=== PATIENT | female | born 1930 | race Caucasian/White ===

== ENCOUNTER 2017-10-30 19:27 | Emergency (ER) | payer MEDICARE, OTHER ==
[2017-10-30 19:35] VITALS: BP 140/75
--- NOTE | 2017-10-30 20:20 | ED Physician Documentation ---
PD HPI SKIN - Stated complaint Stated Complaint: BEE STING - Chief complaint Chief Complaint: Wound - History obtained from History obtained from: Patient - History of Present Illness Timing - onset: Enter time (approximately 13:00), Today Timing - duration: Hours Timing - details: Gradual onset Pain level now: 5 Location: RUE Quality / character: Itchy, Swelling Associated symptoms: No: Dyspnea Recently seen: Not recently seen - Additional information Additional information: stung by a bee to right hand this afternoon, presents due to gradually increasing redness and swelling. she is right-hand dominant. 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 - Present Medications Home Medications: Ambulatory Orders Medication Instructions Recorded Confirmed Aspirin 1 tab PO DAILY 10/30/17 10/30/17 predniSONE [Prednisone] 20 mg PO DAILY #2 tablet 10/30/17 - Allergies Allergies/Adverse Reactions: Allergies Allergy/AdvReac Type Severity Reaction Status Date / Time bee venom protein (honey bee) Allergy Edema Verified 10/30/17 19:35 - Social History Does the pt smoke?: No Smoking Status: Never smoker Does the pt drink ETOH?: No Does the pt have substance abuse?: No - Immunizations Immunizations are current?: Yes - POLST Patient has POLST: No PD ED PE NORMAL - Vitals Vital signs reviewed: Yes - General General: Alert and oriented X 3, No acute distress, Well developed/nourished PD ED PE EXPANDED - Extremities Extremities: Other (no FB (stinger) visualized, including with use of lens of otoscope for magnification) MARYURI UE/Hands Visual: 1 - rash (confluent erythema), swelling Results - Vitals Vitals: Vital Signs - 24 hr 10/30/17 19:32 Temperature 36.7 C Heart Rate 63 Respiratory 16 Rate Blood Pressure 140/75 H O2 Saturation 97 Oxygen O2 Source Room air PD MEDICAL DECISION MAKING - ED course Complexity details: reviewed results, re-evaluated patient, considered differential, d/w patient Departure - Departure Disposition: 01 Home, Self Care Clinical Impression: Local reaction to bee sting Qualifiers: Encounter type: initial encounter Injury intent: accidental or unintentional Qualified Code(s): T63.441A - Toxic effect of venom of bees, accidental ( unintentional), initial encounter Condition: Good Instructions: ED Bite Sting Insect Local Allergic React Follow-Up: Nicole Norton DO [Primary Care Provider] - Prescriptions: predniSONE [Prednisone] 20 mg PO DAILY #2 tablet Comments: You can also take Zyretc ([id number] as directed by the label) daily until the swelling and redness are resolved. Discharge Date/Time: 10/30/17 20:37
[2017-10-30] MEDS ORDERED: CETIRIZINE 10 MG TABLET PO STA (20:30)
[2017-10-30] MEDS ORDERED: predniSONE 20 MG TABLET PO STA (20:30)
== END 2017-10-30 20:37 | disposition home or self-care (01) ==
LOC: ED 19:27
DX: T63.441A Toxic effect of venom of bees, accidental (unintentional), initial encounter (principal)
CPT/HCPCS: 99283; A9270; J7512

== ENCOUNTER 2020-06-24 20:52 | Emergency (ER) | payer MEDICARE, OTHER ==
[2020-06-24 21:39] LABS: BASOPHILS # (AUTO) 0.1 10^3/uL (0.0-0.1); BASOPHILS % (AUTO) 0.7 %; EOSINOPHILS # (AUTO) 0.5 10^3/uL (0.0-0.7); EOSINOPHILS % (AUTO) 6.7 %; HGB - HEMOGLOBIN 12.9 g/dL (12.0-16.0); LYMPHOCYTES # (AUTO) 1.1 10^3/uL (1.5-3.5); LYMPHOCYTES % (AUTO) 14.7 %; MEAN CORPUSCULAR HGB CONC 32.1 g/dL (32.0-36.0); MEAN CORPUSCULAR VOLUME 96.6 fL (81.0-99.0); MEAN PLATELET VOLUME 7.9 fL (7.9-10.8); MONOCYTES # (AUTO) 0.8 10^3/uL (0.0-1.0); MONOCYTES % (AUTO) 10.1 %; NEUTROPHILS # (AUTO) 5.1 10^3/uL (1.5-6.6); NEUTROPHILS % (AUTO) 67.5 %; PLT - PLATELET COUNT 305 10^3/uL (130-450); RED BLOOD COUNT 4.16 10^6/uL (4.20-5.40); WHITE BLOOD COUNT 7.6 x10^3/uL (4.8-10.8)
--- NOTE | 2020-06-24 21:45 | ED Physician Documentation ---
PD HPI LOWER EXT INJURY - Stated complaint Stated Complaint: PX IN BOTH LEGS - Chief complaint Chief Complaint: Ext Problem - History obtained from History obtained from: Patient - History of Present Illness PD HPI LOW EXT INJURY LOCATION: Both Type of injury: No: Fall, Twist, Blunt / blow Where injury occurred: Home Timing - onset: How many days ago (2) Timing - duration: Days (2) Timing - details: Gradual onset, Still present, Waxing and waning (has noted pain down both legs for the past 2 days, worse with walking and also hurting when lying down. Denies any particular injury.) Improved by: Meds (2 aspirin). No: Rest Worsened by: Moving, Other (walking) Associated symptoms: No: Weakness, Numbness, Swelling Similar symptoms before: Has not had sx before Recently seen: Not recently seen Review of Systems Constitutional: denies: Fever, Chills Nose: denies: Rhinorrhea / runny nose, Congestion Throat: denies: Sore throat Cardiac: denies: Chest pain / pressure, Palpitations Respiratory: denies: Dyspnea, Cough Skin: denies: Rash, Lesions Musculoskeletal: reports: Back pain (some pain in lower back, but not as much as into both legs.). 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 - Present Medications Home Medications: Ambulatory Orders Medication Instructions Recorded Confirmed Aspirin 1 tab PO DAILY 10/30/17 10/30/17 predniSONE [Prednisone] 20 mg PO DAILY #2 tablet 10/30/17 dexAMETHasone [Decadron] 4 mg PO DAILY #5 tablet 06/25/20 - Allergies Allergies/Adverse Reactions: Allergies Allergy/AdvReac Type Severity Reaction Status Date / Time bee venom protein (honey bee) Allergy Edema Verified 10/30/17 19:35 - Social History Does the pt smoke?: No Smoking Status: Never smoker Does the pt drink ETOH?: No Does the pt have substance abuse?: No - Immunizations Immunizations are current?: Yes - POLST Patient has POLST: No PD ED PE NORMAL - Vitals Vital signs reviewed: Yes - General General: Alert and oriented X 3, Well developed/nourished, Other (appears in discvomfort) - Cardiac Cardiac: RRR, No murmur - Respiratory Respiratory: Clear bilaterally - Abdomen Abdomen: Soft, Non tender - Female Female : Deferred - Rectal Rectal: Deferred - Back Back: No CVA TTP - Derm Derm: Normal color, Warm and dry, No rash - Extremities Extremities: Normal ROM s pain (seems to be moving around hips and low back to get comfortable position), No edema, No calf tenderness / cord, Other (diminished pulses at feet. Good color however. ) - Neuro Neuro: Alert and oriented X 3, No motor deficit, Normal speech Results - Vitals Vitals: Vital Signs - 24 hr 06/24/20 06/24/20 06/25/20 21:18 21:23 00:08 Temperature 36.9 C 36.9 C Heart Rate 68 68 56 L Respiratory 18 18 17 Rate Blood Pressure 141/83 H 141/83 H 143/77 H O2 Saturation 97 97 98 06/25/20 00:30 Temperature Heart Rate 55 L Respiratory 17 Rate Blood Pressure 135/71 H O2 Saturation 97 Oxygen O2 Source Room air - Labs Labs: Laboratory Tests 06/24/20 06/24/20 21:34 21:34 WBC 7.6 RBC 4.16 L Hgb 12.9 Hct 40.2 MCV 96.6 MCH 31.0 MCHC 32.1 RDW 13.0 Plt Count 305 MPV 7.9 Neut # (Auto) 5.1 Lymph # (Auto) 1.1 L Placer # (Auto) 0.8 Eos # (Auto) 0.5 Baso # (Auto) 0.1 Absolute Nucleated RBC 0.00 Nucleated RBC % 0.0 Sodium 138 Potassium 4.1 Chloride 96 L Carbon Dioxide 30 Anion Gap 12.0 BUN 17 Creatinine 0.7 Estimated GFR (MDRD) 79 L Glucose 105 H Calcium 9.7 Magnesium 2.3 Total Bilirubin 0.5 AST 21 ALT 14 Alkaline Phosphatase 76 Total Protein 6.4 L Albumin 4.0 Globulin 2.4 Albumin/Globulin Ratio 1.7 - Rads (name of study) lumbar CT Radiology: Prelim report reviewed (arthritic changes, no acute fractures), See rad report araterial doppler legs Radiology: Prelim report reviewed (no vascular occlusions), See rad report PD MEDICAL DECISION MAKING - ED course Complexity details: considered differential (can be sciatic pain. However also describes as claudication possibly. Can check CT lumbar and also arterial duplex legs. ), d/w patient Departure - Departure Disposition: 01 Home, Self Care Clinical Impression: Sciatic leg pain Condition: Stable Record reviewed to determine appropriate education?: Yes Instructions: ED Sciatica Follow-Up: Maryana Douglas PA [Primary Care Provider] - Prescriptions: dexAMETHasone [Decadron] 4 mg PO DAILY #5 tablet Comments: This seems likely to be some nerve pain from the low back going down both legs (sciatic). Gentle range of motion and stretching. Heat for the low back or warm soaks to reduce stiffness. You can do physical treatments such as chiropractic or massage as well. Use Decadron anti-inflammatory daily for the next 5 days. To that add Tylenol 500 mg 4 times a day for the next several days to a week. Add an aspirin if you need. Follow-up with your primary care if not improved well over the next several days to week. Discharge Date/Time: 06/25/20 01:20
[2020-06-24 21:51] LABS: ALBUMIN/GLOBULIN RATIO 1.7 (1.0-2.2); BILIRUBIN,TOTAL 0.5 mg/dL (0.2-1.0); CALCIUM 9.7 mg/dL (8.5-10.3); CREATININE 0.7 mg/dL (0.4-1.0); MAGNESIUM 2.3 mg/dL (1.7-2.8); TOTAL PROTEIN 6.4 g/dL (6.7-8.2)
[2020-06-24] MEDS ORDERED: ACETAMINOPHEN 325 MG TABLET PO STA (22:13)
[2020-06-25 01:18] VITALS: BP 135/71
--- NOTE | 2020-06-25 08:38 | Ultrasound Report ---
PROCEDURE: Duplex Lwr Ext Arterial Bilat INDICATIONS: lower legs pain, worse with activity TECHNIQUE: Color and pulse Doppler interrogation was performed of both lower extremity arterial systems, with im age documentation. COMPARISON: None FINDINGS: Right lower extremity: Common femoral artery: 101 cm/sec, with triphasic flow. Deep femoral artery: 64 cm/sec, with triphasic flow. Proximal superficial femoral artery: 82 cm/sec, with triphasic flow. Mid superficial femoral artery: 64 cm/sec, with triphasic flow. Distal superficial femoral artery: 123 cm/sec, with triphasic flow. Popliteal artery: 74 cm/sec, with triphasic flow. Posterior tibial artery: 90 cm/sec, with biphasic flow. Anterior tibial artery/dorsalis pedis: 36 cm/sec, with biphasic flow. Manzo-scale imaging description: Moderate scattered plaque. In addition, there is a fluid collection within the right popliteal fossa measuring 14 x 6 x 10 mm. Left lower extremity: Common femoral artery: 84 cm/sec, with triphasic flow. Deep femoral artery: 63 cm/sec, with triphasic flow. Proximal superficial femoral artery: 84 cm/sec, with triphasic flow. Mid superficial femoral artery: 84 cm/sec, with triphasic flow. Distal superficial femoral artery: 96 cm/sec, with triphasic flow. Popliteal artery: 56 cm/sec, with biphasic flow. Posterior tibial artery: 70 cm/sec, with biphasic flow. Anterior tibial artery/dorsalis pedis: 13 cm/sec, with biphasic flow. Manzo-scale imaging description: Moderate scattered plaque. IMPRESSION: 1. No areas of hemodynamically significant stenosis, vascular occlusion or aneurysmal dilation. Scatt ered atherosclerotic disease is noted more notable in the distal extremities. 2. Right Bruno cyst is incidentally noted. Reviewed by: Carissa Shah MD on 06/25/2020 8:36 AM PST Approved by: Carissa Shah MD on 06/25/2020 8:36 AM PST Station ID: [id number]
--- NOTE | 2020-06-25 09:13 | CT Report ---
PROCEDURE: LUMBAR SPINE WO INDICATIONS: low back pain, radiating to both legs, new onset TECHNIQUE: Noncontrast 3 mm thick sections acquired from the T12 level to the sacrum. Sagittal and coronal refo rmats were constructed. For radiation dose reduction, the following was used: automated exposure co ntrol, adjustment of mA and/or kV according to patient size. COMPARISON: None. FINDINGS: Image quality: Excellent. Bones: No acute vertebral body compression fractures. No suspicious lytic or blastic bony lesions. 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 Trace degen erative retrolisthesis of L4 on 5. Mild levoscoliosis. There is trace left lateral subluxation of L3 on 4. There is moderate bilateral facet arthropathy and ligamentum flavum hypertrophy at L3-4 which causes a possible moderate central canal narrowing. There is severe, chronic appearing degenerative disc hei ght loss at this level. Similar degenerative changes in the posterior elements and mild circumferenti al disc bulge at L4-5 results in moderate central canal stenosis. Anterolisthesis and chronic appearing disc bulge at L5-S1 results in moderate right and severe left n eural foraminal narrowing. Soft tissues: No retroperitoneal masses or hematomas. Visualized aorta is normal in caliber with a tortuous course and mild calcification. Incidental note is made of sigmoid diverticulosis. IMPRESSION: 1. No acute fractures or subluxation. 2. Multilevel chronic appearing disc and posterior element degenerative change. 3. Degenerative changes include a central canal narrowing at L3-4 and L4-5 and bilateral foraminal na rrowing at L5-S1, any of which may be symptomatic. Consider MRI if there are no contraindications. 4. Concordant with preliminary report. Reviewed by: Soledad Saldivar MD on 06/25/2020 9:12 AM PST Approved by: Soledad Saldivar MD on 06/25/2020 9:12 AM PST Station ID: [id number]
== END 2020-06-25 01:20 | disposition home or self-care (01) ==
LOC: ED 20:52
DX: M54.42 Lumbago with sciatica, left side (principal); M54.41 Lumbago with sciatica, right side; M47.27 Other spondylosis with radiculopathy, lumbosacral region; M71.21 Synovial cyst of popliteal space [Baker], right knee
CPT/HCPCS: 36415; 72131; 80053; 83735; 85025; 93925; 99284; A9270

== ENCOUNTER 2020-08-05 06:01 | Outpatient (CLI) | payer MEDICARE, OTHER | END 2020-08-05 06:02 | disposition short-term general hospital (02) | LOC: EMS 06:01 | DX: M79.662 Pain in left lower leg (principal); R10.32 Left lower quadrant pain | CPT/HCPCS: A0425; A0429; A0888 ==

== ENCOUNTER 2021-01-14 17:03 | Outpatient (CLI) | payer MEDICARE, OTHER | END 2021-01-14 17:04 | disposition home or self-care (01) | LOC: COV 17:03 | PROVIDERS: ATTEND Family Medicine | DX: U07.1 COVID-19 (principal) ==